=== PATIENT | male | born 1935 | race Caucasian/White ===

== ENCOUNTER 2018-04-14 14:05 | Inpatient (IN) | payer OTHER ==
[~2018-04-14] VITALS: Ht 170.2 cm; Wt 76.7 kg
[~2018-04-14 14:05] MED LIST: ALBU90OI INH; AMLO10 PO; ASCO500 PO; Advair Hfa 230-12 GM PO; BUDE6HFA INH; CENTRUM SILVER1 EAC2 PO; CODACE30 PO; FLAX PO; FURO20 PO; Fish Oil Conc1000 MG PO; GLUCOSAMINE1000 MG PO; LISI20 PO; MONT10T PO; Natural Vita400 UNIT PO; PRED5 PO; PROBIOTIC1 EAC1 PO; TIOT18 INH; WARF5 PO
[2018-04-14 15:45] LABS: BASOPHILS ABSOLUTE AUTO 0.04 K/mm3 (0.00-0.23); BASOPHILS PERCENT AUTO 0 % (0-2); EOSINOPHILS PERCENT AUTO 0 % (0-6); Hematocrit 29.2 % (37.0-53.0); Hemoglobin 9.2 g/dL (13.5-17.5); IMMATURE GRAN ABSOLUTE AUTO 0.06 K/mm3 (0.00-0.10); IMMATURE GRAN PERCENT AUTO 0 % (0-1); LYMPHOCYTES ABSOLUTE AUTO 0.09 K/mm3 (0.84-5.20); LYMPHOCYTES PERCENT AUTO 1 % (21-46); MONOCYTES ABSOLUTE AUTO 0.23 K/mm3 (0.16-1.47); MONOCYTES PERCENT AUTO 2 % (4-13); Mean Corpuscular HGB 25.3 pg (26.0-34.0); Mean Corpuscular HGB Conc 31.5 g/dL (31.5-36.5); Mean Corpuscular Volume 80 fL (80-100); Mean Platelet Volume 9.7 fL (9.1-12.4); NEUTROPHILS ABSOLUTE AUTO 13.92 K/mm3 (1.96-9.15); NEUTROPHILS PERCENT AUTO 97 % (41-73); Platelet Count 322 K/mm3 (150-400); RDW Coefficient Variation 17.1 % (11.7-14.2); RDW Standard Deviation 50.2 fL (35.1-46.3); Red Blood Cell Count 3.63 M/mm3 (4.30-5.90); White Blood Cell Count 14.34 K/mm3 (4.00-11.30)
[2018-04-14 15:56] LABS: International Normalized Ratio 2.08; Prothrombin Time Results 22.1 Sec (9.7-11.5)
[2018-04-14 16:18] LABS: Alanine Aminotransfer (ALT/SGP 23 U/L (12-78); Albumin, Blood 3.3 g/dL (3.4-5.0); Albumin/Globulin Ratio 0.9 (0.8-1.8); Alk Phos 59 U/L (50-136); Anion Gap 6 mmol/L (6-16); Aspartate Aminotrans (AST/SGOT 16 U/L (12-37); Bilirubin, Total 0.4 mg/dL (0.1-1.0); Blood Urea Nitrogen 13 mg/dL (8-24); CO2, Blood 31 mmol/L (21-32); Calcium, Blood 8.7 mg/dL (8.5-10.1); Chloride, Blood 98 mmol/L (98-108); Creatinine, Blood 0.82 mg/dL (0.60-1.20); Globulin, Blood 3.8 g/dL (2.2-4.0); Glomerular Filtration Rate >60 (60-); Glucose, Blood 158 mg/dL (70-99); Potassium, Blood 4.3 mmol/L (3.5-5.5); Sodium, Blood 135 mmol/L (136-145); Total Protein, Blood 7.1 g/dL (6.4-8.2)
[2018-04-14] MEDS ORDERED: Albuterol2.5 MG/0.5 INH (18:08)
[2018-04-15 04:05] LABS: BASOPHILS ABSOLUTE AUTO 0.01 K/mm3 (0.00-0.23); BASOPHILS PERCENT AUTO 0 % (0-2); EOSINOPHILS PERCENT AUTO 0 % (0-6); Hematocrit 26.9 % (37.0-53.0); Hemoglobin 8.5 g/dL (13.5-17.5); IMMATURE GRAN ABSOLUTE AUTO 0.04 K/mm3 (0.00-0.10); IMMATURE GRAN PERCENT AUTO 1 % (0-1); LYMPHOCYTES ABSOLUTE AUTO 0.26 K/mm3 (0.84-5.20); LYMPHOCYTES PERCENT AUTO 3 % (21-46); MONOCYTES PERCENT AUTO 5 % (4-13); Mean Corpuscular HGB 24.6 pg (26.0-34.0); Mean Corpuscular HGB Conc 31.6 g/dL (31.5-36.5); Mean Corpuscular Volume 78 fL (80-100); NEUTROPHILS ABSOLUTE AUTO 8.06 K/mm3 (1.96-9.15); NEUTROPHILS PERCENT AUTO 92 % (41-73); Platelet Count 308 K/mm3 (150-400); RDW Coefficient Variation 17.2 % (11.7-14.2); RDW Standard Deviation 48.7 fL (35.1-46.3); Red Blood Cell Count 3.46 M/mm3 (4.30-5.90); White Blood Cell Count 8.77 K/mm3 (4.00-11.30)
[2018-04-15 04:17] LABS: International Normalized Ratio 1.89; Prothrombin Time Results 20.1 Sec (9.7-11.5)
[2018-04-15 04:30] LABS: Alanine Aminotransfer (ALT/SGP 21 U/L (12-78); Albumin, Blood 2.9 g/dL (3.4-5.0); Albumin/Globulin Ratio 0.8 (0.8-1.8); Alk Phos 53 U/L (50-136); Anion Gap 6 mmol/L (6-16); Aspartate Aminotrans (AST/SGOT 13 U/L (12-37); Bilirubin, Total 0.6 mg/dL (0.1-1.0); Blood Urea Nitrogen 18 mg/dL (8-24); Bun/Creatinine Ratio 19.5 (12.0-20.0); CO2, Blood 31 mmol/L (21-32); Calcium, Blood 8.6 mg/dL (8.5-10.1); Chloride, Blood 96 mmol/L (98-108); Creatinine, Blood 0.92 mg/dL (0.60-1.20); Globulin, Blood 3.6 g/dL (2.2-4.0); Glomerular Filtration Rate >60 (60-); Glucose, Blood 150 mg/dL (70-99); Potassium, Blood 4.6 mmol/L (3.5-5.5); Sodium, Blood 133 mmol/L (136-145); Total Protein, Blood 6.5 g/dL (6.4-8.2)
[2018-04-16 04:14] LABS: International Normalized Ratio 1.96; Prothrombin Time Results 20.8 Sec (9.7-11.5)
== END 2018-04-16 14:00 | disposition home or self-care (01) | DRG 200 ==
LOC: ER 14:05 → PCU 16:35
PROVIDERS: Emergency Medicine; Internal Medicine
DX: J93.83 Other pneumothorax (principal); J96.11 Chronic respiratory failure with hypoxia; C18.9 Malignant neoplasm of colon, unspecified; J44.9 Chronic obstructive pulmonary disease, unspecified; J84.10 Pulmonary fibrosis, unspecified; I48.2 Chronic atrial fibrillation; I10 Essential (primary) hypertension
CPT/HCPCS: 36415; 71045; 71046; 80053; 85025; 85610; 93005; 93010; 94640; 94762; 99285

== ENCOUNTER 2019-09-27 12:07 | Inpatient (IN) | payer OTHER ==
[~2019-09-27] VITALS: Ht 170.2 cm; Wt 71.8 kg
[~2019-09-27 12:07] MED LIST changes: -Advair Hfa 230-12 GM PO; +Albuterol2.5 MG/0.5 INH; +FLUT1DIS8 INH
[2019-09-27 13:45] LABS: BASOPHILS ABSOLUTE AUTO 0.05 K/mm3 (0.00-0.23); BASOPHILS PERCENT AUTO 0 % (0-2); EOSINOPHILS ABSOLUTE AUTO 0.02 K/mm3 (0.00-0.68); EOSINOPHILS PERCENT AUTO 0 % (0-6); Hematocrit 39.5 % (37.0-53.0); Hemoglobin 12.6 g/dL (13.5-17.5); IMMATURE GRAN ABSOLUTE AUTO 0.12 K/mm3 (0.00-0.10); IMMATURE GRAN PERCENT AUTO 1 % (0-1); LYMPHOCYTES ABSOLUTE AUTO 0.43 K/mm3 (0.84-5.20); LYMPHOCYTES PERCENT AUTO 2 % (21-46); MONOCYTES ABSOLUTE AUTO 1.99 K/mm3 (0.16-1.47); MONOCYTES PERCENT AUTO 10 % (4-13); Mean Corpuscular HGB Conc 31.9 g/dL (31.5-36.5); Mean Corpuscular Volume 88 fL (80-100); Mean Platelet Volume 11.6 fL (9.1-12.4); NEUTROPHILS PERCENT AUTO 87 % (41-73); Platelet Count 157 K/mm3 (150-400); RDW Coefficient Variation 15.4 % (11.7-14.2); RDW Standard Deviation 49.1 fL (35.1-46.3); White Blood Cell Count 20.31 K/mm3 (4.00-11.30)
[2019-09-27 13:51] LABS: Base Excess Venous 7.5 mmol/L; Bicarbonate Venous 29.3 mmol/L (24.0-30.0); PCO2 Venous 58.4 mmHg (38-42); PO2 Venous 51.9 mmHg (38-42); pH Blood Venous 7.36 (7.34-7.37)
[2019-09-27 14:03] LABS: Alanine Aminotransfer (ALT/SGP 19 U/L (12-78); Albumin, Blood 3.2 g/dL (3.4-5.0); Alk Phos 66 U/L (50-136); Anion Gap 6 mmol/L (6-16); Aspartate Aminotrans (AST/SGOT 17 U/L (12-37); Bilirubin, Total 0.9 mg/dL (0.1-1.0); Blood Urea Nitrogen 23 mg/dL (8-24); Bun/Creatinine Ratio 23.3 (12.0-20.0); CO2, Blood 32 mmol/L (21-32); Calcium, Blood 8.6 mg/dL (8.5-10.1); Chloride, Blood 104 mmol/L (98-108); Creatinine, Blood 0.99 mg/dL (0.60-1.20); Globulin, Blood 3.2 g/dL (2.2-4.0); Glomerular Filtration Rate >60 (60-); Glucose, Blood 126 mg/dL (70-99); Sodium, Blood 142 mmol/L (136-145); Total Protein, Blood 6.4 g/dL (6.4-8.2); Troponin I 0.042 ng/mL (0.000-0.040)
[2019-09-27] MEDS ORDERED: ELIQUIS5 MG PO (14:56)
[2019-09-27 15:13] LABS: International Normalized Ratio 1.08; Prothrombin Time Results 11.4 Sec (9.7-11.5)
[2019-09-27] MEDS ORDERED: DIGOX250 MCG PO (15:27)
[2019-09-27] MEDS ORDERED: DALIRESP500 MCG PO (15:37)
[2019-09-27] MEDS ORDERED: GUAI200 PO (17:57)
[2019-09-27] MEDS ORDERED: AZIT250 PO (17:58)
--- NOTE | 2019-09-27 18:16 | NUR ---
PT ARRIVED TO PCU 8 VIA GURNEY FROM ED, REPORT OBTAINED FROM ED NURSE. PT ABLE TO TRANSFER HIMSELF TO THE BED, A/OX3, PLEASANT AND COOPERATIVE WITH CARE, FOLLOWS COMMANDS WELL, CANT REMEMBER HIS MEDICINES, LUNGS HAVE SOME WHEEZING T/O, TIGHT, RESP EVEN AND UNLABORED, HAS CHRONIC PRODUCTIVE COUGH OF WHITE SPUTUM, HE IS ON 3 LITERS 02 VIA N/C, RESP EVEN AND UNLABORED, NO COUGH NOTED, HRR, TELE IN PLACE RUNNING PACED RHYTHM, NO EDEMA NOTED, PPP+1, CAP REFILL <3SEC, VS STABLE, AFEBRILE, IV SITE IS CLEAR AND PATENT, BTX4, ABD FLAT SOFT NONTENDER, VOIDS WITHOUT DIFF, SKIN C/W/D, MAEW, FROILAN, CALL LIGHT IN REACH.
[2019-09-27] MEDS ORDERED: Omega 3 1,0001 EACH PO (19:34)
[2019-09-27] MEDS ORDERED: TOCO1000 PO (19:34)
[2019-09-27] MEDS ORDERED: Norco 10-325 T1 EACH PO (19:35)
[2019-09-27] MEDS ORDERED: PROAIR RESPICL90 MCG (19:36)
[2019-09-27] MEDS ORDERED: GLUC500 PO (19:37)
[2019-09-27] MEDS ORDERED: ROFL500T (19:38)
[2019-09-28 02:14] LABS: BASOPHILS ABSOLUTE AUTO 0.01 K/mm3 (0.00-0.23); BASOPHILS PERCENT AUTO 0 % (0-2); EOSINOPHILS PERCENT AUTO 0 % (0-6); Hematocrit 35.6 % (37.0-53.0); Hemoglobin 11.5 g/dL (13.5-17.5); IMMATURE GRAN ABSOLUTE AUTO 0.09 K/mm3 (0.00-0.10); IMMATURE GRAN PERCENT AUTO 1 % (0-1); LYMPHOCYTES PERCENT AUTO 1 % (21-46); MONOCYTES ABSOLUTE AUTO 0.94 K/mm3 (0.16-1.47); MONOCYTES PERCENT AUTO 6 % (4-13); Mean Corpuscular HGB 28.5 pg (26.0-34.0); Mean Corpuscular HGB Conc 32.3 g/dL (31.5-36.5); Mean Corpuscular Volume 88 fL (80-100); Mean Platelet Volume 11.2 fL (9.1-12.4); NEUTROPHILS ABSOLUTE AUTO 15.01 K/mm3 (1.96-9.15); NEUTROPHILS PERCENT AUTO 92 % (41-73); Platelet Count 150 K/mm3 (150-400); RDW Coefficient Variation 15.2 % (11.7-14.2); RDW Standard Deviation 49.6 fL (35.1-46.3); Red Blood Cell Count 4.03 M/mm3 (4.30-5.90); White Blood Cell Count 16.25 K/mm3 (4.00-11.30)
[2019-09-28 02:36] LABS: Alanine Aminotransfer (ALT/SGP 16 U/L (12-78); Albumin, Blood 2.8 g/dL (3.4-5.0); Albumin/Globulin Ratio 0.8 (0.8-1.8); Alk Phos 61 U/L (50-136); Anion Gap 3 mmol/L (6-16); Aspartate Aminotrans (AST/SGOT 14 U/L (12-37); Bilirubin, Total 0.7 mg/dL (0.1-1.0); Blood Urea Nitrogen 29 mg/dL (8-24); Bun/Creatinine Ratio 23.4 (12.0-20.0); CO2, Blood 33 mmol/L (21-32); Calcium, Blood 8.6 mg/dL (8.5-10.1); Chloride, Blood 103 mmol/L (98-108); Creatinine, Blood 1.24 mg/dL (0.60-1.20); Globulin, Blood 3.7 g/dL (2.2-4.0); Glomerular Filtration Rate 59 (60-); Glucose, Blood 179 mg/dL (70-99); Potassium, Blood 4.4 mmol/L (3.5-5.5); Sodium, Blood 139 mmol/L (136-145); Total Protein, Blood 6.5 g/dL (6.4-8.2); Troponin I <0.015 ng/mL (0.000-0.040)
--- NOTE | 2019-09-28 06:31 | NUR ---
SHIFT SUMMARY PT HAS REMAINED AOX4 THROUGHOUT THE SHIFT. VSS. PLEASANT AND COOPERATIVE WITH CARE. PT CONTINUES TO AMBULATE INDEPENDENTLY TO THE RESTROOM OR WITH MINIMAL ASSISTANCE. O2 SATS HAVE REMAINED >90% ON 4L VIA NASAL CANNULA. PT REPORTS THAT HE WEARS 3L VIA NASAL CANNULA AT HOME, BUT WILL INCREASE TO 5L WITH ACTIVITY. PT CONTINUOUSLY UTILIZES PURSED LIP BREATHING TECHNIQUES THROUGHOUT THE NIGHT. PT HAS RESTED WELL THROUHGOUT THE NIGHT, WAKING EASILY FOR CARE. NO OTHER CHANGES NOTED FROM INITIAL ASSESSMENT. WILL CONTINUE TO MONITOR AND REPORT TO ONCOMING SHIFT RN. BED IN LOW POSITION,CALL LIGHT IN REACH.
--- NOTE | 2019-09-28 08:00 | NUR ---
PT SITTING UP ON SIDE OF BED, STATES HES DOING OK, REPORTS NOT MUCH SLEEP LAST NIHGT, A/OX3, PLEASANT AND COOPERATIVE WITH CARE, FOLLOWS COMMANDS WELL, DENIES COMPLAINTS OF PAIN, LUNGS ARE CLEAR IN UPPER BURNS, STILL TIGHT, DIM IN BASES, RESP EVEN WITH SOME MILD LABORING, USING PURSED LIP BREATHING AT TIMES, OCC CHRONIC PRODUCTIVE COUGH, IS CURRENTLY ON 2.5 LITERS AT THIS TIME, SATS 97%, HRR, TELE IN PLACE RUNNING 100% PACED RHYTHM, NO EDEMA NOTED, PPP+1, CAP REFILL <3SEC, VS STABLE, AFEBRILE, IV SITE TO LEFT WRIST SITE IS CLEAR AND PATENT, BTX4, ABD FLAT SOFT NONTENDER, VOIDS WITHOUT DIFF, SKIN C/W/D, MAEW, UP AD REYES IN ROOM, GAIT NOTED TO BE STEADY, FROILAN CALL LIGHT IN REACH.
--- NOTE | 2019-09-28 10:52 | NUR ---
PT HAS BEEN CHANGED TO MEDICAL STATUS, IS MOVING TO MEDICAL FLOOR AT THIS TIME, INFORMED PT, REPORT GIVEN TO VAHID DURBIN. PT LEFT VIA WHEELCHAIR WITH BIRTHING NURSE IN ATTENDENCE, ALL BELONGINGS WENT WITH PT.
--- NOTE | 2019-09-28 11:08 | NUR ---
TRANSFER NOTE HANDOFF RECEIVED FROM SENIOR ACCOUNTING MANAGERGIFTY CHADWICK. PT TRANSFERED TO MEDICAL FLOOR VIA WHEELCHAIR. PT AND FAMILY ORIENTED TO UNIT. PT ON 3 LPM OC VIA NC, WHICH IS HIS BASELINE. CALL LIGHT WITHIN REACH.
--- NOTE | 2019-09-28 16:04 | NUR ---
SHIFT SUMMARY PT TRANSFERED FROM PCU TODAY. DX: RT LOWER LOBE PNEUMONIA/SEPSIS. PLAN IS FOR ANTIBIOTICS, TAPER STEROIDS, DC HOME W/SPOUSE. NS IS RUNNING AT 100 ML/HR ORDERED. 3 LPM O2 AT REST, 5 LPM O2 W/ACTIVITY IS BASELINE. HR IS PACED, TELE IS MONITORING. HX OF AFIB. PT IS A&O X4. SPUTUM SAMPLE POSITIVE FOR GRAM NEG BACTERIA
[2019-09-29 04:03] LABS: Hematocrit 35.3 % (37.0-53.0); Hemoglobin 10.9 g/dL (13.5-17.5); Mean Corpuscular HGB 27.7 pg (26.0-34.0); Mean Corpuscular HGB Conc 30.9 g/dL (31.5-36.5); Mean Corpuscular Volume 90 fL (80-100); Mean Platelet Volume 10.9 fL (9.1-12.4); Platelet Count 164 K/mm3 (150-400); RDW Coefficient Variation 15.6 % (11.7-14.2); RDW Standard Deviation 51.8 fL (35.1-46.3); Red Blood Cell Count 3.93 M/mm3 (4.30-5.90); White Blood Cell Count 17.81 K/mm3 (4.00-11.30)
[2019-09-29 04:17] LABS: Anion Gap 3 mmol/L (6-16); Blood Urea Nitrogen 33 mg/dL (8-24); Bun/Creatinine Ratio 30.8 (12.0-20.0); CO2, Blood 33 mmol/L (21-32); Calcium, Blood 8.6 mg/dL (8.5-10.1); Chloride, Blood 103 mmol/L (98-108); Creatinine, Blood 1.07 mg/dL (0.60-1.20); Glomerular Filtration Rate >60 (60-); Glucose, Blood 120 mg/dL (70-99); Potassium, Blood 4.1 mmol/L (3.5-5.5); Sodium, Blood 139 mmol/L (136-145)
--- NOTE | 2019-09-29 06:08 | NUR ---
SHIFT SUMMARY: 84 Y/O MALE RESTED COMFORTABLY ALL SHIFT, DENIES PAIN OR NAUSEA, WEARING O2 AT 3L/M PER NASAL CANNULA, ABLE TRANSFER AND AMBULATE BATHROOM X 1 STANDBY ASSIST, ALERT AND ORIENTED X 4, PT RINGS FOR ASSISTANCE WITH ALL NEEDS VIA CALL LIGHT, LUNG SOUNDS ARE DIMINISHED THROUGHOUT, BED LOW POSITION WITH CALL LIGHT AT SIDE.
--- NOTE | 2019-09-29 16:24 | NUR ---
Initial palliative care consult: Gio is a 84 year old gentleman with a history of pulmonary fibrosis, COPD, colon cancer s/p colectomy in 2018, a-fib on eliquis, HTN, pacemaker. He wears home O2 3 l/min at rest, increases it to 4l/min with activity. He was admitted on 09/27/19 with RLL pneumonia and sepsis . His is at the bedside during the visit. Gio reports he is doing better, however he reports he is not yet back to his baseline. He reports at home he walks about 25 feet during commercial breaks on the TV. He is SOB with exertion and has some SOB with conversation although he is able to speak in short full sentences. He and his spend their corral in [place] and are planning to leave and head south as soon as he is feeling better. He receives care at [facility]. He reports that he has a motorized wheelchair, ramp, home O2 and a lift for his van that was provided by the [facility]. His states he doesn't have a die welder in [place], however she states that this year they will need to establish care with a primary MD in [place]. He states last year he was hospitalized with pneumonia and felt he was discharged too soon and ended up being sick most of the winter in [place]. He doesn't want a repeat of that this year. His is his caregiver and both report that they feel they have the resources needed at home to continue his care at home. He has an AD on file at the [facility] and in the EMR here at [facility]. His states that this is the first admission that he wants to be a DNR. Discussed that option with pt and and they agree this is what his wishes are. Provided a POLST form and explained the different options. He and his would like to review the form and possibly fill it out tomorrow. Reivew of systems completed. Pt reports fatigue yet difficulty sleeping, shakiness of hands and slowly improving dyspnea. Discussed options for improving sleep during hospitalization and discussed medication side effects that can cause insomnia and shakiness. He reports that he might want to take his melatonin earlier than 2200 tonight. Encouraged him to have a conversation with his nurse this evening re: bedtime medications and blocking off some time for him to sleep undisturbed between scheduled care. PC will follow up with pt re: POLST form and symptom management tomorrow.
--- NOTE | 2019-09-29 17:19 | NUR ---
SHIFT SUMMARY PT SPUTUM CULTURE POSITIVE FOR CLASSIC PNEUMONIA. FEELS PT WOULD BENEFIT FROM AT LEAST ONE MORE DAY IN THE HOSPITAL. TELEMETRY IS MONITORING, PACED @ 69 BPM. PT DID REQUEST A BREATHING TREATMENT IN THE AFTERNOON. PLAN IS HOPEFUL FOR DC TOMORROW OR THE NEXT DAY. NS RUNNING @ 100 ML/HR.
--- NOTE | 2019-09-29 23:11 | NUR ---
PT HAD 6 BEAT RUN OF V-TACH PER [employer], VITAL SIGNS STABLE, DENIES CHEST PAIN, NAUSEA OR SOB, VIOLET MACIAS RN, CHARGE NURSE ADVISED.
--- NOTE | 2019-09-30 04:26 | NUR ---
SHIFT SUMMARY: 84 Y/O MALE SLEPT COMFORTABLY ALL SHIFT WHILE WEARING O2 AT 2L/M PER NASAL CANNULA, DENIES PAIN OR NAUSEA, HAPPY AND COOPERATIVE, BED LOW POSITION WITH CALL LIGHT AT SIDE.
[2019-09-30 05:28] LABS: Hematocrit 31.9 % (37.0-53.0); Hemoglobin 9.9 g/dL (13.5-17.5); Mean Corpuscular HGB 27.7 pg (26.0-34.0); Mean Corpuscular Volume 89 fL (80-100); Mean Platelet Volume 11.1 fL (9.1-12.4); Platelet Count 166 K/mm3 (150-400); RDW Coefficient Variation 15.6 % (11.7-14.2); RDW Standard Deviation 51.1 fL (35.1-46.3); Red Blood Cell Count 3.58 M/mm3 (4.30-5.90); White Blood Cell Count 10.55 K/mm3 (4.00-11.30)
[2019-09-30] MEDS ORDERED: ALBU3IS INH (11:34)
[2019-09-30] MEDS ORDERED: Vsl#3 Capsule1 EACH PO (11:35)
[2019-09-30] MEDS ORDERED: LEVO750 PO (11:35)
--- NOTE | 2019-09-30 14:02 | NUR ---
Pt states his breathing is improving and he is looking forward to going home. He has a completed POLST in his room. Contacted Dr. Byrd and had him sign pt's POLST. Copy of POLST taken for EMR and faxed to [place] POLST Registry. Original POLST form returned to pt's room. Gio states he was able to sleep last night after taking melatonin. He reports he actually slept well. No questions or concerns at this time. Call light in his reach. Dangling at the bedside.
--- NOTE | 2019-09-30 15:35 | NUR ---
patient given all his discharge information. awaiting five o-clock so his can pick him up. no acute concerns at this time. he has bene pleasant, calls papropriately. he has oxygen at home alreayd.
== END 2019-09-30 17:46 | disposition home or self-care (01) | DRG 871 ==
LOC: ER 12:07 → PCU 15:20 → MEDS 09-28 10:55
PROVIDERS: Emergency Medicine; Nurse Practitioner Acute Care; ADMIT Internal Medicine
DX: A41.50 Gram-negative sepsis, unspecified (principal); J96.21 Acute and chronic respiratory failure with hypoxia; J15.0 Pneumonia due to Klebsiella pneumoniae; J96.22 Acute and chronic respiratory failure with hypercapnia; J44.1 Chronic obstructive pulmonary disease with (acute) exacerbation; J44.0 Chronic obstructive pulmonary disease with (acute) lower respiratory infection; I48.20 Chronic atrial fibrillation, unspecified; R65.20 Severe sepsis without septic shock; N18.3 Chronic kidney disease, stage 3 (moderate); I10 Essential (primary) hypertension; J84.10 Pulmonary fibrosis, unspecified; I12.9 Hypertensive chronic kidney disease with stage 1 through stage 4 chronic kidney disease, or unspecified chronic kidney disease; Z99.81 Dependence on supplemental oxygen; Z88.8 Allergy status to other drugs, medicaments and biological substances; Z79.01 Long term (current) use of anticoagulants; Z79.51 Long term (current) use of inhaled steroids; Z79.52 Long term (current) use of systemic steroids; Z79.899 Other long term (current) drug therapy
CPT/HCPCS: 36415; 71046; 80048; 80053; 82803; 83605; 83880; 84145; 84484; 85025; 85027; 85610; 87040; 87070; 87077; 87186; 87205; 87449; 93005; 93010; 94640; 94644; 94664; 94760; 96365; 96375; 99285-25; J1956; J2543; J2930; J3475; J7030; J7512